=== PATIENT | male | born 1940 | race Caucasian/White ===

== ENCOUNTER 2023-11-03 21:03 | Emergency (ER) | payer MEDICARE, BC, SELFPAY ==
[2023-11-03 21:04] VITALS: BP 144/80
--- NOTE | 2023-11-03 21:28 | ED.GENMED ---
History of Present Illness
General
Chief Complaint: Throat Problem
Source: patient
Exam Limitations: none
Time Seen by Provider: 11/03/23 21:15
History of Present Illness
History of Present Illness:
This is a 83 year old male that comes in with c/o Tylenol stuck in his throat. States that he takes Extra strength Tylenol 2 tabs three times daily. States that tonight he took the first one and it went down and then he took the second on and he
feels like this is stuck in his throat. States that this happened about 8:15pm. States that he can tolerate water and warm water but he still feels like it is there. States that he always has a headache. Denies any fever, chills, chest pain, SOB,
abd pain, nausea, vomiting, diarrhea, dizziness, urinary burning.
Past History
Past History
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
ED Past Surgical History: Orthopedic ( left and Right total knee replacement, Right rotator cuff, Left elbow tendon repair, Left wrist cyst. carpal tunnel, laminectomy), Urological (Right nephrectomy, ) and Other (W[employer] IN[employer]CTOR shunt, cataracts, Vocal cord
biopsy, Right hernia repair)
Social History
Tobacco: Non-smoker
Alcohol: Occasional
Personal:
Living: with family
Employment: Retired
Review of Systems
Review of Systems
All Other Systems: ROS reviewed and negative except as documented in HPI and ROS
Constitutional: Reports no symptoms; Denies fever or chills
EENT: Reports other (Feels like his Tylenol is stuck in his throat)
Respiratory: Denies trouble breathing
Cardiac: Reports no symptoms; Denies chest pain
ABD/GI: Reports no symptoms; Denies abdominal pain, nausea, vomiting or diarrhea
: Reports no symptoms; Denies dysuria, frequency or urgency
Musculoskeletal: Reports no symptoms
Skin: Reports no symptoms
Neurological: Reports headache (Always has a headache); Denies dizzy
Psychiatric: Reports no symptoms
Phy Exam
General Physical Exam
General Presentation: well appearing and no apparent distress
General age: appears stated age
General Skin: warm and dry
General Habitus: elderly
General Mental: alert
General Hydration: dry mucous membranes
ENT Exam
ENT Exam: TM's normal, pharynx normal and neck supple
Eye Exam
Eye Exam: EOMI
Cardiovascular Exam
Cardiovascular Exam: regular rate/rhythm, no edema and normal peripheral pulses
Pulmonary Exam
Pulmonary Exam: lungs clear, no respiratory distress, no rales, chest non tender, no crackles, no rhonchi, no wheezing and no cough
Musculoskeletal Exam
Musculoskeletal Exam: full ROM and no edema
Skin Exam
Skin Exam: normal color, warm/dry, no rash and no petechia
Psychiatric Exam
Psychiatric Exam: normal mood/affect
Course
Orders/Labs/Results
Orders:
Orders
11/03/23 21:26
Glucagon [GlucaGen] 1 mg IV NOW STA
Ondansetron Injectable [Zofran] 4 mg IV NOW STA
Pantoprazole [Protonix IV] 40 mg IV NOW STA
Nursing to Place Non Medication Order As Directed
Physician Order: Please give patient something warm to drink
Above order entered?: Yes
11/03/23 21:27
Famotidine [Pepcid] 20 mg IV NOW STA
Vital Signs
Initial and Last Documented VS:
Initial Vital Signs
Temp Pulse Resp BP Pulse Ox
97.8 F 74 22 144/80 95
11/03/23 21:04 11/03/23 21:04 11/03/23 21:04 11/03/23 21:04 11/03/23 21:04
Last Documented Vital Signs
Temp Pulse Resp BP Pulse Ox
97.8 F 65 18 128/70 96
11/03/23 21:04 11/03/23 22:28 11/03/23 22:28 11/03/23 22:28 11/03/23 22:28
MDM/Problems Addressed
Differential Diagnosis Includes:
Throat irritation. Pill stuck in his throat
MDM/Problems Addressed:
This is a 83 year old male that comes in with c/o feeling like a Tylenol is stuck in his throat.
Will have patient drink warm Fluids, given Pepcid, Protonix, Zofran and Glucagen and then recheck.
Back into see patient. States that he is feeing much better and that it is gone. Will discharge home.
Chronic conditions affecting care:
NA
Acute Exacerbation and/or Progression of Chronic Illness:
NA
*Pulse Oximetry
Patient hypoxic: no
*EKG
Interpreted by ED Provider?: NA
Rate: EKG- N/A
*Poising Inspector Interpretation
Rate: Poising Inspector- N/A
*Critical Care Note
Total Time (30-74mins, 75-104mins- exclusive of procedures): Not Applicable
ED Attending Note
-
Portions of this chart may have been created with voice recognition software.� Occasional wrong word or��sound alike� substitutions may have occurred due to the inherent limitations of voice recognition software.
Discharge Plan
Departure
Patient Disposition: Home (Routine Discharge)
Date of Disposition: 11/03/23
Time of Disposition: 23:03
Patient with high blood pressure during this ER visit?: No
Condition: Good
Covid-19: Not Applicable
Discharge Problem:
Throat discomfort
Prescriptions:
No Action
pantoprazole 40 MG tablet,delayed release (DR/EC)
40 mg PO DAILY
baclofen 10 MG tablet
10 mg PO TIDPRN PRN (Reason: hiccups/or sleep) Qty: 10 0RF
tolterodine [Detrol] 1 mg Tablet
1 mg PO HS
therapeutic multivitamin Tablet
1 tab PO DAILY
ascorbic acid (vitamin C) [Vitamin C] 250 mg Tablet
250 mg PO DAILY
zolpidem 10 mg Tablet
10 mg PO HSPRN PRN (Reason: sleep )
Patient Comments:
01/30/23 filled on 04/26/22 #90
acetaminophen [Tylenol Extra Strength] 500 MG tablet
1,000 mg PO TID
lorazepam 1 mg Tablet
1 mg PO TIDPRN PRN (Reason: anxiety)
Patient Comments:
01/30/23 filled on 11/28/22 #90
Referrals:
UNKNOWN - PT DOES,NOT KNOW [Family Provider] -
Activity Restrictions/Additional Instructions:
As discussed, the pill is gone. Please follow up with the family doctor as needed. IF YOU HAVE ANY OTHER CONCERNS PLEASE RETURN TO THE EMERGENCY ROOM.
Interventions
Interventions:
*Risk Screen - Suicide Last Done: 11/03/23 21:04
*General Assessment Last Done: 11/03/23 21:45
*Neglect/Abuse Screening Last Done: 11/03/23 21:04
ED- Fall Risk Assessment Last Done: 11/03/23 22:00
*ED COVID-19 Vaccine History Last Done: 11/03/23 21:45
ED-EENT Assessment Last Done: 11/03/23 22:00
ED- Pulmonary Assessment Last Done: 11/03/23 22:00
Discharge Date and Time
Print Language: TAJIK
[2023-11-03 21:45] VITALS: BMI 27.6
[2023-11-03] MEDS: ZOFRAN 4 MG IV (21:47)
[2023-11-03] MEDS: GlucaGen 1 MG IV (21:49)
[2023-11-03] MEDS: PROTONIX IV 40 MG IV (21:49)
[2023-11-03] MEDS: PEPCID 20 MG IV (21:49)
[2023-11-03 22:28] VITALS: BP 128/70
== END 2023-11-03 23:15 | disposition home or self-care (01) ==
LOC: EMR 21:03
PROVIDERS: EMERGENCY PHYSICIAN Emergency Medicine
DX: R07.0 Pain in throat (principal); K21.9 Gastro-esophageal reflux disease without esophagitis; N40.0 Benign prostatic hyperplasia without lower urinary tract symptoms; R09.89 Other specified symptoms and signs involving the circulatory and respiratory systems; Z85.528 Personal history of other malignant neoplasm of kidney; Z87.19 Personal history of other diseases of the digestive system; Z90.5 Acquired absence of kidney; Z98.2 Presence of cerebrospinal fluid drainage device
CPT/HCPCS: 99282; 96374; 96375; J1610

== ENCOUNTER → 2024-01-06 06:29 | Day surgery (SDC) | payer MEDICARE, BC, SELFPAY | LOC: GI 06:29 | PROVIDERS: ATTENDING PHYSICIAN Internal Medicine Gastroenterology | DX: R10.12 Left upper quadrant pain (principal); K22.89 Other specified disease of esophagus; R13.10 Dysphagia, unspecified; K44.9 Diaphragmatic hernia without obstruction or gangrene; K31.7 Polyp of stomach and duodenum; K31.89 Other diseases of stomach and duodenum; K22.70 Barrett's esophagus without dysplasia | CPT/HCPCS: 43239; 88305; 88342 ==

== ENCOUNTER → 2025-02-12 11:24 | Outpatient (REF) | payer MEDICARE, BC, SELFPAY | LOC: HWRAD 11:24 | PROVIDERS: ATTENDING PHYSICIAN Neurological Surgery; FAMILY PHYSICIAN Family Medicine | DX: Z98.2 Presence of cerebrospinal fluid drainage device (principal); R51.9 Headache, unspecified | CPT/HCPCS: 70450 ==

== ENCOUNTER 2025-03-31 10:11 | Emergency (ER) | payer MEDICARE, BC, SELFPAY ==
[2025-03-31] VITALS (8 sets, daily range): BP systolic 126–184; BP diastolic 66–98; BMI 27.9
[2025-03-31 11:47] LABS: Hematocrit 41.4 % (39.0-52.0); Hemoglobin 14.4 g/dL (13.0-18.0); Mean Corp Hgb Conc. 34.8 g/dL (33.0-37.0); Mean Corpuscular Volume 93.5 fL (80.0-94.0); Nucleated Red Blood Cells % 0 % (-); Platelet Count 208 10^3/uL (130-400); Red Cell Dist. Width 12.2 % (11.5-14.5)
[2025-03-31 12:01] LABS: ALT (SGPT) 22 U/L (0-50); AST (SGOT) 21 U/L (17-59); Albumin 4.0 g/dl (3.5-5.0); Alkaline Phosphatase 49 U/L (38-126); Blood Urea Nitrogen 22 mg/dl (9-20); Calcium 9.3 mg/dl (8.4-10.2); Carbon Dioxide 27 mmol/L (22-30); Chloride 104 mmol/L (98-107); Estimated Creatinine Clearance 64 ml/min; Glucose 126 mg/dl (70-99); Potassium 4.2 mmol/L (3.5-5.1); Sodium 134 mmol/L (135-145); Total Protein 6.3 g/dl (6.3-8.2); eGFR > 60.00
--- NOTE | 2025-03-31 13:41 | ED.GENMED ---
History of Present Illness
General
Chief Complaint: Dizziness
Source: patient
Exam Limitations: none
Time Seen by Provider: 03/31/25 11:10
Nursing documentation reviewed up to this point in time: agreed with
History of Present Illness
History of Present Illness:
84-year-old male past medical history of MANAGER UROLOGY shunt presenting to the emergency department today with concerns of an episode of nausea vomiting lightheadedness that occurred this morning had some ongoing symptoms today. Then called EMS was brought in
and was given dose of Zofran with improvement.
Past History
Past History
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
ED Past Surgical History: Orthopedic ( left and Right total knee replacement, Right rotator cuff, Left elbow tendon repair, Left wrist cyst. carpal tunnel, laminectomy), Urological (Right nephrectomy, ) and Other (MANAGER UROLOGY shunt, cataracts, Vocal cord
biopsy, Right hernia repair)
Social History
Tobacco: Non-smoker
Alcohol: Occasional
Personal:
Living: with family
Employment: Retired
Review of Systems
Review of Systems
Allergies reviewed?: Yes
All Other Systems: ROS reviewed and negative except as documented in HPI and ROS
Phy Exam
Physical Exam
Physical Exam:
GENERAL: Alert , in no apparent distress
EYE: pupils equal and reactive
NECK: Supple, no significant adenopathy.
ENT: o/p clr, mmm.
CARDIAC: Regular rate and rhythm .
LUNGS: Clear breath sounds bilaterally, no acute respiratory distress, no wheezes/rales/rhonchi
ABDOMEN: Soft, without focal tenderness, no r/g, no cvat
NEUROLOGICAL: Alert and oriented, no focal neuro deficits
SKIN: Warm and dry, skin intact.
MUSCULOSKELETAL: No edema, well perfused.
PSYCH: Normal and appropriate interaction.
Course
Orders/Labs/Results
Orders:
Orders
03/31/25 11:26
EKG [Electrocardiogram (*1)] Urgent
Reason for Study: Vertigo / Dizzy
CT Head W/o Iv Contrast Urgent
Comment:
Reason For Exam: dizziness/AW[employer] vp organizational development shunt
Chest [CR Chest - 2 Views ] Urgent
Comment:
Reason For Exam: dizzy, MANAGER UROLOGY shunt
03/31/25 11:29
EKG- Treatment ONCE
03/31/25 11:31
CR Cervical Spine 2 or 3 Vw Urgent
Comment:
Reason For Exam: frontal lateral view MANAGER UROLOGY shunt
03/31/25 11:37
Complete Blood Count/With Diff Urgent
Comprehensive Metabolic Panel Urgent
03/31/25 11:41
CR Abdomen - 2 Views Urgent
Comment:
Reason For Exam: AP lateral for MANAGER UROLOGY shunt series
Skull < 4 Views CR [CR Skull < 4 Views] Urgent
Comment:
Reason For Exam: AP lateral for MANAGER UROLOGY shunt series
03/31/25 13:07
Urinalysis Reflex To Culture Urgent
Date Specimen was Collected: 03/31/25
Time Specimen was Collected: 11:30
Urine Microscopic Reflex Cult Urgent
03/31/25 13:43
0.9% Sodium Chloride 1000 ml [Nss] 1,000 ml IV BOLUS
03/31/25 14:16
Metoclopramide [Reglan] 10 mg IV NOW STA
Abnormal Lab Results
03/31/25 03/31/25
11:37 13:07
RBC 4.43 L 10^6/uL
(4.70-6.10)
MCH 32.5 H pg
(27.0-31.0)
MPV 11.0 H fL
(7.4-10.4)
Abs Immat Gran (auto) 0.1 H 10^3/uL
(0-0.05)
Absolute Neuts (auto) 6.8 H 10^3/uL
(1.4-6.5)
Absolute Lymphs (auto) 0.9 L 10^3/uL
(1.2-3.4)
Immature Gran % 0.6 H %
(0-0.5)
Neutrophils % 84.1 H %
(42.2-75.2)
Lymphocytes % 10.9 L %
(20.5-51.1)
Sodium 134 L mmol/L
(135-145)
BUN 22 H mg/dl
(9-20)
Glucose 126 H mg/dl
(70-99)
Total Bilirubin 1.4 H mg/dl
(0.2-1.3)
Urine Bacteria (Reflex) Few A
(Negative)
Urine Albumin (Reflex) 1+ A
(Neg - Trace)
03/31/25 11:37
03/31/25 11:37
Vital Signs
Initial and Last Documented VS:
Initial Vital Signs
Pulse Resp BP Pulse Ox
52 16 184/98 97
03/31/25 10:16 03/31/25 10:16 03/31/25 10:16 03/31/25 10:16
Last Documented Vital Signs
Pulse Resp BP Pulse Ox
72 19 158/91 97
03/31/25 16:17 03/31/25 14:45 03/31/25 16:21 03/31/25 16:17
MDM/Problems Addressed
MDM/Problems Addressed:
84-year-old male presenting to the emergency department today with concerns of lightheadedness dizziness nausea vomiting starting this morning. Received Zofran and route via EMS with improvement of symptoms. Vital signs normal. Labs showing
elevated BUN to creatinine ratio but otherwise labs unremarkable. CT scan as well as x-rays without evidence of emergent changes with MANAGER UROLOGY shunt. Otherwise labs here without emergent findings. Symptoms significant improved over multiple hours here
in the ER. Return precautions given.
*Pulse Oximetry
SaO2: 98
Oxygen Mode of Delivery: Room air
Patient hypoxic: no (97)
*Critical Care Note
Total Time (30-74mins, 75-104mins- exclusive of procedures): Not Applicable
ED Attending Note
-
Portions of this chart may have been created with voice recognition software.� Occasional wrong word or��sound alike� substitutions may have occurred due to the inherent limitations of voice recognition software.
Discharge Plan
Departure
Patient Disposition: Home (Routine Discharge)
Date of Disposition: 03/31/25
Time of Disposition: 17:17
Patient with high blood pressure during this ER visit?: No
Condition: Good
Covid-19: Not Applicable
Discharge Problem:
Dizziness
Instructions: Dizziness
Prescriptions:
No Action
pantoprazole 40 MG tablet,delayed release (DR/EC)
40 mg PO DAILY
baclofen 10 MG tablet
10 mg PO TIDPRN PRN (Reason: hiccups/or sleep) Qty: 10 0RF
tolterodine [Detrol] 1 mg Tablet
1 mg PO HS
therapeutic multivitamin Tablet
1 tab PO DAILY
ascorbic acid (vitamin C) [Vitamin C] 250 mg Tablet
250 mg PO DAILY
zolpidem 10 mg Tablet
10 mg PO HSPRN PRN (Reason: sleep )
Patient Comments:
01/30/23 filled on 04/26/22 #90
acetaminophen [Tylenol Extra Strength] 500 MG tablet
1,000 mg PO TID
lorazepam 1 mg Tablet
1 mg PO TIDPRN PRN (Reason: anxiety)
Patient Comments:
01/30/23 filled on 11/28/22 #90
Referrals:
Graciela Ordonez DO [Family Provider, Family Practice]
Activity Restrictions/Additional Instructions:
You came to the emergency department today with concerns of dizziness. Here you have a reassuring assessment. Please feel closely with your outpatient doctor. Return for any worsening, new or concerning symptoms.
Interventions
Interventions:
*Risk Screen - Suicide Last Done: 03/31/25 10:58
*General Assessment Last Done: 03/31/25 10:58
*Neglect/Abuse Screening Last Done: 03/31/25 10:58
*ED COVID-19 Vaccine History Last Done: 03/31/25 10:58
*ED Influenza Vaccine History Last Done: 03/31/25 10:58
[facility] Risk Assessment Tool Last Done: 03/31/25 10:58
ED- Neurological Assessment Last Done: 03/31/25 10:58
ED Swallowing Screen Last Done: 03/31/25 11:05
Discharge Date and Time
Print Language: [id number]
[2025-03-31] MEDS: NSS 1000 IV (13:51)
[2025-03-31 13:56] LABS: Urine Character Clear (Clear)
[2025-03-31 14:16] LABS: Urine Red Blood Cell 0-2 /HPF (0-2)
[2025-03-31] MEDS: REGLAN 10 MG IV (14:21)
== END 2025-03-31 17:35 | disposition home or self-care (01) ==
LOC: EMR 10:11
PROVIDERS: Physician Assistant; EMERGENCY PHYSICIAN Student in an Organized Health Care Education/Training Program; FAMILY PHYSICIAN Family Medicine
DX: R42 Dizziness and giddiness (principal); R11.2 Nausea with vomiting, unspecified; Z98.2 Presence of cerebrospinal fluid drainage device; Z85.528 Personal history of other malignant neoplasm of kidney; Z87.19 Personal history of other diseases of the digestive system; Z90.5 Acquired absence of kidney
CPT/HCPCS: 96374; 96361; 99284; 70250; 70450; 71046; 72040; 74019; 80053; 81003; 81015; 85025; 93005